=== PATIENT | female | born 1990 | race Caucasian/White ===

== ENCOUNTER 2016-07-25 10:47 | Inpatient (IN) | payer OTHER ==
--- NOTE | ~2016-07-25 | HP ---
Unit #: [id number] #: [id number] Patient: MICHELLE PASTOR [id number] [place] [address] [id number] MR#: [id number] NAME: MICHELLE PASTOR ROOM: P211 Age: 25 Sex: F Admission Date: 07/25/2016 : 1990 Attending Physician: Mimi Martinez M.D. Admitting Physician: Mimi Martinez M.D. Primary Care Physician: Thais Al A.P.R.N. HISTORY AND PHYSICAL HISTORY OF PRESENT ILLNESS Michelle is a 25 year old admitted to [address] [place] [address] because of her continued abuse of alcohol. PAST MEDICAL HISTORY 1. Long history of polysubstance abuse to include alcohol, opioids and benzodiazepines. 2. Obesity. 3. Asthma. 4. Diabetes mellitus. 5. Mike's. PAST SURGICAL HISTORY Oral. ALLERGIES Penicillin (anaphylaxis). SOCIAL HISTORY Smokes 1/2 pack per day. Describes herself as a frequent binge drinker and a long history of illicit drug use to include opioids, benzodiazepines and methamphetamine. FAMILY HISTORY Medically noncontributory. REVIEW OF SYSTEMS CONSTITUTIONAL: No fever or chills. HEENT: Denies any sore throat, ear pain or runny nose. CARDIOVASCULAR: Denies chest pain, irregular heart rhythm or palpitations. CHEST: Denies shortness of breath or cough. No hemoptysis. GASTROINTESTINAL: Denies nausea, vomiting, diarrhea or chronic constipation. ENDOCRINE: Denies history of increased thirst or urination. No recent significant weight loss or gain. GENITOURINARY: Denies dysuria, frequency, or hematuria. SKIN: Denies any rashes. HEMATOLOGIC: Denies history of increased bleeding or bruising. MUSCULOSKELETAL: Denies any hot, swollen joints. No generalized muscle pain. NEUROLOGIC: Denies problems with vision or speech. No frequent, severe headaches. No numbness, tingling or weakness in any extremities. Denies loss of bladder or bowel control. Unit #: [id number] #: [id number] Patient: MICHELLE PASTOR CURRENT MEDICATIONS 1. Detox protocol. 2. Cleocin 150 mg q. 6 hours. 3. Propranolol 10 mg q.a.m. 4. Celexa 40 mg daily. 5. Abilify 2 mg q.a.m. 6. Synthroid 0.2 mg daily. 7. Glucophage 500 mg b.i.d. 8. Singulair 10 mg daily. PHYSICAL EXAMINATION GENERAL: Alert, obese, in no apparent distress. VITAL SIGNS: Blood pressure 126/92, heart rate 88, respirations 16, temperature 98.6. WEIGHT: 290. HEIGHT: 5 feet 9 inches. SKIN: Warm and dry without rash or lesion. HEENT: Normocephalic. TMs not viewed. Oral and nasal passages clear. Conjunctivae clear. PERRLA. EOMs intact. NECK: Supple without lymphadenopathy or thyromegaly. HEART: Regular rate and rhythm without murmur. LUNGS: Clear. ABDOMEN: Soft, nontender. : Not done. EXTREMITIES: No evidence of cyanosis, clubbing or edema. Moves all without focal deficit. NEUROLOGICAL: Grossly within normal limits. Cranial Nerves: II: Visual torres are intact. III, IV AND : Extraocular movements are intact. Pupils are equal, round and reactive to light. V: Facial sensation is grossly normal. VII: Facial movements and expression are normal. VIII: Auditory acuity grossly intact. IX, X: Uvula is midline. Phonation is normal. XI: Patient shrugs shoulders and turns head normally. XII: Tongue protrudes in the midline. Sensory and Motor Function: Sensory and motor sensation is grossly normal. Motor: moves all extremities well. Coordination: Gait is normal. Deep Tendon Reflexes: Intact. IMPRESSION Psychiatric admission. RECOMMENDATIONS PSYCHIATRIC: Per psychiatrist. MEDICAL: See no contraindications to participate in facility's activities. MEDICAL PROGNOSIS Good. MEDICAL CONDITION Stable. Dictated by... Charisma Magaña P.A.-C. for Unit #: [id number] #: [id number] Patient: MICHELLE PASTOR Shagufta De La Garza/jason TD: 07/26/2016 15:44 JOB #: [id number] HISTORY AND PHYSICAL X Charisma Magaña HISTORY AND PHYSICAL
--- NOTE | ~2016-07-25 | DS ---
Unit #: [id number] #: [id number] [facility]: [facility] GRACE [id number] [facility] [address] [place] [address] [id number] MR#: [id number] NAME: MILAN GRACE ROOM: P211 Age: 25 Sex: F Admission Date: 07/25/2016 : 1990 Discharge Date: 07/29/2016 Attending Physician: Mimi Martinez M.D. Primary Care Physician: Thais Al A.P.R.N. DISCHARGE SUMMARY IDENTIFYING DATA Ms. Grace is a 25-year-old single white female who is a resident of [place], [place] and is known to us from previous encounter and was self-referred to the hospital. DISCHARGE DIAGNOSES Psychiatric: Bipolar disorder, most recent episode depressed, recurrent, moderate, without psychotic features; alcohol dependence, moderate and acute withdrawals; opioid dependence, moderate and acute withdrawals; benzodiazepine dependence, moderate. Medical: Polycystic ovarian syndrome. Stressors: Moderate psychosocial stressors. HISTORY OF PRESENT ILLNESS Please see initial psychiatric evaluation for details. PAST PSYCHIATRIC HISTORY Please see initial psychiatric evaluation for details. PAST MEDICAL HISTORY Please see initial psychiatric evaluation for details. HOSPITAL COURSE The [facility] and was oriented to the hospital environment. Routine p.r.n. medications were initiated, and she was started back on her home medication, and Abilify and Celexa were medication and detox protocol was initiated and she was closely monitored. She was taking medications regularly and was tolerating them fairly well and was able to show a decent and therapeutic response with improvement in depression and anxiety and was willing to continue treatment on an outpatient basis and as such, it was decided that she will be discharged home and will continue treatment on an outpatient basis. DISCHARGE MEDICATIONS Abilify 2 mg a day for bipolar and Celexa 40 mg a day for depression. DISCHARGE CONDITION Stable. PROGNOSIS Fair. Unit #: [id number] #: [id number] Patient: MILAN GRACE Dictated by... Shagufta Blackmon/rosalie TD: 07/30/2016 00:04 JOB #: [id number] DISCHARGE SUMMARY Page 1 of 1 X Mimi Martinez MD DISCHARGE SUMMARY
--- NOTE | ~2016-07-25 | PN ---
Unit #: [id number] #: [id number] Patient: MILAN GRACE [id number] [facility] [address] [place] [address] [id number] I MR#: [id number] NAME: MILAN GRACE ROOM: P211 Age: 25 Sex: F Admission Date: 07/25/2016 : 1990 Attending Physician: iMmi Martinez M.D. Admitting Physician: Mimi Martinez M.D. Primary Care Physician: yMa Cho PROGRESS NOTES DATE OF SERVICE: 07/28/2016 SUBJECTIVE Ms. Grace is a 25-year-old white female who was seen today and chart was reviewed, and case was discussed with the staff. She has been anxious, withdrawn, though has not shown any agitation or irritability, and has been cooperative with treatment recommendations and she has been taking the medications and was tolerating them fairly well. MENTAL STATUS EXAMINATION Young white female who was casually dressed with fair personal hygiene, appears to be in no acute distress or discomfort. She was awake and alert on interaction with intact orientation. Her mood was anxious with a congruent affect. She denies any suicidal or homicidal ideation, and also denies any auditory or visual hallucinations. Her insight and judgment remain slightly impaired. TREATMENT PLAN 1. We will continue on her current medications and treatment protocol. We will monitor her response and make further adjustments as needed. 2. We will continue to follow up. Dictated by... Shagufta Blackmon/rosalie TD: 07/29/2016 01:35 JOB #: [id number] [facility] PROGRESS NOTES Page 1 of 1 X Mimi Martinez MD PROGRESS NOTE
--- NOTE | ~2016-07-25 | PA ---
Unit #: [id number] #: [id number] Patient: MILAN GRACE [id number] [facility] [address] [place] [address] [id number] I MR#: [id number] NAME: MILAN GRACE ROOM: P211 Age: 25 Sex: F Admission Date: 07/25/2016 : 1990 Date of Assessment: 07/25/2016 Attending Physician: Mimi Martinez M.D. Admitting Physician: Mimi Martinez M.D. Primary Care Physician: Thais Al A.P.R.N. PSYCHIATRIC ASSESSMENT DATE OF SERVICE 07/25/2016. IDENTIFYING DATA Ms. Grace is a 25-year-old single white female, who is a resident of [place], [place], and is known to us from previous encounter and was self-referred back to the hospital on a voluntary basis and had a blood alcohol level of 0.101. CHIEF COMPLAINT "I drink a lot and I take a lot of pills." HISTORY OF PRESENT ILLNESS Ms. Grace is a 25-year-old white female with dual diagnosis of substance abuse and mood disorder, who was self-referred to the hospital reporting that she has been drinking a lot and taking her pills and that she wants to kill herself and that she has been drinking a fifth a day and that she took twelve Grant 5's yesterday and reports that she has a plan to overdose and reports increasing depression, anxiety, disturbed sleep, psychomotor retardation, feelings of hopelessness and helplessness, and suicidal ideations with intent and plan. She reports that her just got diagnosed with Braydon disease and it is the anniversary of two friends' and as such, has been decompensating and reports being a cutter and her last cut was 3 weeks ago. She reports that she was unable to stay sober after she got out of the hospital last time back in 03/2016 and relapsed soon afterwards and now she has been decompensating and was seen to be a danger to self and others, and as such, a recommendation for inpatient level of care for safety and stabilization was made and the patient was transferred to us. SUBSTANCE ABUSE HISTORY The patient has a history of alcohol, cannabis, cocaine, opioids, amphetamines, and prescription medication abuse, and currently, it appears that alcohol and opioids has been her drug of choice. PAST PSYCHIATRIC HISTORY The patient has had a history of inpatient psychiatric hospitalization at [facility] and has been diagnosed and treated for mood disorder and substance abuse, and review of the medical records indicate that she is on a combination of Abilify and Celexa, but does not appear to be showing a therapeutic response to the medications. PAST MEDICAL HISTORY Unit #: [id number] #: [id number] Patient: MILAN GRACE Polycystic ovarian syndrome. ALLERGIES Penicillin. PERSONAL AND SOCIAL HISTORY A 25-year-old white female, who reports that she is and lives at home with her and stepdaughter and has a fairly decent social support system. MENTAL STATUS EXAMINATION Young white female, who was casually dressed with fair personal hygiene, appears to be in no acute distress or discomfort. She was awake and alert on interaction with intact orientation. Her mood was anxious and depressed with a congruent affect. Her speech was slow and goal directed. She reports having suicidal ideations, but denies any homicidal ideations and also denies any auditory or visual hallucinations. Her insight and judgment remain significantly impaired. DIAGNOSTIC IMPRESSION Psychiatric: Bipolar disorder, most recent episode depressed, recurrent, moderate, without psychotic features; alcohol dependence, moderate, in acute withdrawals; opioid dependence, moderate; and benzodiazepine abuse, moderate. Medical: Polycystic ovarian syndrome. Stressors: Moderate psychosocial stressors. TREATMENT PLAN 1. The patient has presented with a history of substance abuse and mood disorder and has been decompensating and will need inpatient hospitalization for safety and stabilization. We will start her on detox protocol. We will closely monitor for any worsening withdrawal symptoms. 2. Supportive therapy was provided to the patient. 3. Safe, structured, and nourishing environment will be provided. ESTIMATED LENGTH OF STAY 4 to 5 days. ABILITY TO HELP SELF Limited. WILLINGNESS TO HELP SELF The patient appears to be willing to help self. STRENGTHS 1. Communicative. 2. Cooperative. PROBLEMS 1. Chronic dysphoric symptoms. 2. Chronic chemical dependency. 3. Poor social support system. DISCHARGE CRITERIA This will be contingent upon the patient's ability to go through detox without having any significant withdrawal symptoms as well as her ability to stay safe to herself, particularly after discharge from the hospital. Unit #: [id number] #: [id number] Patient: MILAN GRACE Dictated by... Shagufta Blackmon/rosalie TD: 07/26/2016 13:50 JOB #: [id number] PSYCHIATRIC ASSESSMENT X Mimi Martinez MD PSYCHIATRIC ASSESSMENT
--- NOTE | ~2016-07-25 | PN ---
Unit #: [id number] #: [id number] Patient: MILAN GRACE [id number] [facility] [address] [place] [address] [id number] MR#: [id number] NAME: MILAN GRACE ROOM: P211 Age: 25 Sex: F Admission Date: 07/25/2016 : 1990 Attending Physician: Mimi Martinez M.D. Admitting Physician: Mimi Martinez M.D. Primary Care Physician: Mya Cho PROGRESS NOTES SUBJECTIVE Ms. Grace seen today and chart was reviewed and case was discussed with the staff. She has been doing fairly well with improvement in her depression and anxiety. She has been compliant with treatment recommendations and she has been taking the medications and was tolerating them fairy well. MENTAL STATUS EXAMINATION Young white female, who was casually dressed with fair personal hygiene, appears to be in no acute distress. She was awake and alert with intact orientation. Her mood was anxious with a congruent affect. The patient denies any suicidal or homicidal ideation. Her insight and judgment remain slightly impaired. TREATMENT PLAN 1. We will continue her on current medications and treatment protocol. We will monitor her response and make further adjustments as needed. 2. We will continue to follow up. Dictated by... Mimi Martinez M.D. KELLEY/rosalie TD: 07/28/2016 19:47 JOB #: [id number] [facility] PROGRESS NOTES Page 1 of 1 X Mimi Martinez MD PROGRESS NOTE
--- NOTE | ~2016-07-25 | PN ---
Unit #: [id number] #: [id number] Patient: MILAN GRACE [id number] [facility] [address] [place] [address] [id number] I MR#: [id number] NAME: MILAN GRACE ROOM: [facility] Age: 25 Sex: F Admission Date: 07/25/2016 : 1990 Attending Physician: Mimi Martinez M.D. Admitting Physician: Mimi Martinez M.D. Primary Care Physician: Mya Cho PROGRESS NOTES DATE 07/26/2016 DISCUSSION Ms. Grace is a 25-year-old white female with dual diagnosis of mood disorder and substance abuse who was seen today and chart was reviewed and case was discussed with the staff. She was laying in her bed and appeared to be distress and discomfort. Meanwhile, she has been calm and cooperative and compliant with treatment recommendations. MENTAL STATUS EXAMINATION Young white female who was casually dressed with fair personal hygiene, appears to be in no acute distress or discomfort. She was awake and alert with intact orientation. Her mood was anxious with congruent affect. She denies any suicidal or homicidal ideations. Her insight and judgement remains slightly impaired. TREATMENT PLAN 1. We will continue her on her current treatment protocol. We will monitor her response to the medication and make further adjustments as needed. 2. We will continue to follow up. Dictated by... Shagufta Blackmon/conner TD: 07/28/2016 02:18 JOB #: [id number] Unit #: [id number] #: [id number] Patient: MILAN GRACE PROGRESS NOTES X Mimi Martinez MD X PROGRESS NOTE
[2016-07-26 13:49] LABS: BASOPHIL# 0.1 X10e3 (0-0.3); BASOPHIL% 1.1 % (0-2.5); EOSINOPHIL# 0.6 X10e3 (0-0.7); EOSINOPHIL% 5.1 % (0.0-7.0); HEMATOCRIT 37.6 % (35.0-45.0); HEMOGLOBIN 12.3 gm/dL (12.0-16.0); LYMPHOCYTE# 3.2 X10e3 (1.0-3.5); LYMPHOCYTE% 29.4 % (17.0-45.0); MEAN CELL VOLUME 91.9 FL (83-96); MEAN CORPUSCULAR HGB CONC 32.7 g/dL (30-36); MEAN PLATELET VOLUME 8.9 FL (6.5-11.5); MONOCYTE# 0.6 X10e3 (0-1.0); MONOCYTE% 5.2 % (3.0-12.0); NEUTROPHIL# 6.4 X10e3 (1.5-7.1); NEUTROPHIL% 59.2 % (40-75); PLATELET COUNT 292 X10e3 (140-420); RED BLOOD COUNT 4.09 X10e (3.90-5.30); RED CELL DISTRIBUTION WIDTH 13.5 % (11.0-15.5); WHITE BLOOD COUNT 10.9 X10e3 (4.0-10.5)
[2016-07-26 13:54] LABS: DIFF IND NO
[2016-07-26 13:55] LABS: ALBUMIN SERUM 3.6 g/dL (3.5-5.0); ALKALINE PHOSPHATASE 65 U/L (32-92); ALT (SGPT) 21 U/L (10-40); AST (SGOT) 33 U/L (10-42); BILIRUBIN,TOTAL 0.5 mg/dL (0.2-2.0); BLOOD UREA NITROGEN 13 mg/dL (9-23); BUN/CREATININE RATIO 16.25; CALCIUM SERUM 9.3 mg/dL (8.4-10.2); CARBON DIOXIDE 26 mmol/L (22-31); CHLORIDE 104 mmol/L (100-111); CREATININE SERUM 0.8 mg/dL (0.6-1.4); GLOM FILT RATE Estimated ABOVE60 mL/min (>60); GLUCOSE FASTING 213 mg/dL (70-110); POTASSIUM 4.2 mmol/L (3.5-5.1); PROTEIN TOTAL SERUM 6.7 g/dL (6.0-8.3); SODIUM 138 mmol/L (135-145)
[2016-07-26 14:08] LABS: THYROID STIMULATING HORMONE 2.6 uIU/ml (0.34-5.60)
[2016-07-26 14:14] LABS: FREE THYROXIN (T4) 0.78 ng/dL (0.58-1.64)
[2016-07-26 14:30] LABS: URINE APPEARANCE TURBID; URINE BILIRUBIN NEG (NEG); URINE BLOOD NEG (NEG); URINE COLOR YELLOW; URINE GLUCOSE NEG (NEG); URINE KETONE NEG (NEG); URINE LEUKOCYTE ESTERASE NEG (NEG); URINE NITRATE NEG (NEG); URINE PROTEIN NEG (NEG); URINE SPECIFIC GRAVITY 1.025 (1.003-1.035); URINE UROBILINOGEN 0.2 MG/DL (NEG)
[2016-07-26 15:05] LABS: AMPHETAMINE NEG (NEG); BARBITURATES NEG (NEG); BENZODIAZEPINES POS (NEG); COCAINE NEG (NEG); MARIJUANA POS (NEG); OPIATES POS (NEG); TRICYCLIC ANTIDEPRESSANTS POS (NEG); U METHADONE NEG (NEG)
== END 2016-07-29 09:55 | DRG 885 ==
LOC: P2S 10:47
PROVIDERS: Psychiatry & Neurology Psychiatry
PROC: HZ2ZZZZ Detoxification Services for Substance Abuse Treatment (ICD-10-PCS; principal; 2016-07-25)
DX: F31.32 Bipolar disorder, current episode depressed, moderate (principal); F13.20 Sedative, hypnotic or anxiolytic dependence, uncomplicated; F10.230 Alcohol dependence with withdrawal, uncomplicated; F11.23 Opioid dependence with withdrawal; Z68.41 Body mass index [BMI] 40.0-44.9, adult; E28.2 Polycystic ovarian syndrome; Z88.0 Allergy status to penicillin; Z91.5 Personal history of self-harm; E11.9 Type 2 diabetes mellitus without complications; E66.9 Obesity, unspecified; Z79.84 Long term (current) use of oral hypoglycemic drugs
CPT/HCPCS: 80053; 80307; 81003; 84439; 84443; 84703; 85025; 86592